=== PATIENT | female | born 1985 | race Caucasian/White ===

== ENCOUNTER 2020-07-07 05:25 | Inpatient (IN) | payer BC ==
[~2020-07-07] VITALS: Ht 157.5 cm; Wt 71.8 kg
[2020-07-07] VITALS (14 sets, daily range): BP systolic 94–124; BP diastolic 55–80; PULSE 63–108; TEMP 97.3–98.1
[~2020-07-07 05:25] MED LIST: CEFACLOR500 MG PO; MOTRIN 600600 MG/TAB PO; PERCOCET 325 MG1 TA2 PO; PRENATAL1 TA1 PO; SLOW FE45 MG PO
--- NOTE | 2020-07-07 05:40 | NUR ---
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 Pt reports normal movement and denies any vaginal bleeding. SVE by this RN with clear fluid noted on exam. EFM and toco monitors started. Vital signs WNL. Spoke with Dr. Mendoza for an update on pt's arrival. FHR tracing and SVE reviewed. Orders for labor admission received. Plan of care reviewed with pt.
[2020-07-07 06:17] LABS: BASO % 0.3 % (0.0-2.0); EOS # 0.1 (0.0-0.7); GRAN # 6.5 (1.4-6.5); GRAN % 59.9 % (42.2-75.2); HEMOGLOBIN 11.3 g/dl (12.5-16.0); LYMPH # 3.3 (1.2-3.4); LYMPH % 30.4 % (20.0-51.0); MEAN CELL VOLUME 84 fl (80.0-100.0); MEAN CORPUSCULAR HEMOGLOBIN 29 pg (27.0-31.0); MEAN CORPUSCULAR HGB CONC 34 g/dl (33.0-37.0); MEAN PLATELET VOLUME 10.9 fl (7.4-10.4); MONO # 0.8 (0.1-0.6); MONO % 7.2 % (1.7-9.3); PLATELET COUNT 258 K/mm3 (130-400); RED BLOOD COUNT 3.92 M/mm3 (4.10-5.30); REDCELL DISTRIBUTION WIDTH-CV 13.3 % (11.5-14.5)
[2020-07-07 06:37] LABS: HEMATOCRIT 33.1 % (37.0-47.0)
--- NOTE | 2020-07-07 07:34 | NUR ---
BY DR VALERO. VIABLE MALE TO MOTHERS CHEST. FOB CUT CORD, IN CARE OF GORGE HELMS RN. STRAIGHT CATH PREFORMED BY DR VALERO PLACENTA DELIVERED AT 0735- OXYTOCIN STARTED AT 333 MLS/ HR. PERIURETHRAL TEAR REPAIRED BY DR VALERO. ICE PACK TO PERINEUM. RECOVERY STARTED AT 0745.
--- NOTE | 2020-07-07 08:00 | NUR ---
PATIENT REFUSED COVID TESTING
--- NOTE | 2020-07-07 08:35 | NUR ---
INTERMITTENT HEART TRACING FROM [id number] DUE TO EPIDURAL PLACEMENT AND PATIENT FLAILING IN BED IN PAIN. INTERMITTENT TRACING, [id number]
--- NOTE | 2020-07-07 10:45 | NUR ---
PATIENT POSITIONED FORM BED TO WHEELCHAIR. RIGHT LEG STILL NUMB. YESY CARE PROVIDED. NEW GOWN, PANTIES AND PAD PROVIDED. WHEELED TO 208
[2020-07-08 00:30] VITALS: BP 115/75; PULSE 67; TEMP 98.3
[2020-07-08 07:30] VITALS: BP 105/70; PULSE 73; TEMP 98
[2020-07-08] MEDS ORDERED: IBU600 MG PO (08:52)
--- NOTE | 2020-07-08 13:00 | NUR ---
Rests in bed, alert. Denies any needs at this time.
[2020-07-08 15:00] VITALS: BP 118/80; PULSE 75; TEMP 98.3
--- NOTE | 2020-07-08 19:05 | NUR ---
Ambulatory off unit with spouse and infant.
== END 2020-07-08 19:05 | disposition home or self-care (01) | DRG 807 ==
LOC: LDRO 05:25 → LDR 05:56 → OB 10:52
PROVIDERS: ADMIT Obstetrics & Gynecology
PROC: 10E0XZZ Delivery of Products of Conception, External Approach (ICD-10-PCS; principal; 2020-07-07)
PROC: 0UQMXZZ Repair Vulva, External Approach (ICD-10-PCS; 2020-07-07)
DX: O99.824 Streptococcus B carrier state complicating childbirth (principal); Z37.0 Single live birth; Z3A.38 38 weeks gestation of pregnancy; O70.0 First degree perineal laceration during delivery; O26.893 Other specified pregnancy related conditions, third trimester; Z67.41 Type O blood, Rh negative
CPT/HCPCS: J2540; J2590; J2791; J7120